=== PATIENT | male | born 1985 | race African-American/Black ===

== ENCOUNTER 2019-07-25 14:00 | Emergency (ER) | payer SELFPAY ==
[~2019-07-25] VITALS: Ht 175.3 cm; Wt 80.0 kg
[2019-07-25] MEDS ORDERED: SODIUM CHLORIDE 0.9% 1,000 ML IV ONE (15:19)
[2019-07-25 15:53] LABS: BASOPHILS % 1.1 % (0.0-2.0); EOSINOPHILS % 1.8 % (0.0-5.0); HEMATOCRIT. 41.3 % (42.0-52.0); HEMOGLOBIN. 13.7 g/dL (14.0-18.0); LYMPHOCYTES % 35.5 % (20.0-50.0); MEAN CORPUSCULAR HEMOGLOBIN 27.1 pg (28.0-32.0); MEAN CORPUSCULAR VOLUME 81.9 fL (80.0-94.0); MEAN PLATELET VOLUME 8.9 fl (7.4-10.4); MONOCYTES % 8.9 % (2.0-8.0); NEUTROPHILS % 52.7 % (40.0-76.0); PLATELET 279 x1000/uL (130-400); RED BLOOD CELL COUNT 5.05 mill/uL (4.7-6.1); RED CELL DISTRIBUTION WIDTH 13.7 % (11.6-14.6)
[2019-07-25 15:58] LABS: CHLORIDE 109 mEq/L (98-107)
[2019-07-25 16:03] LABS: D-DIMER 0.44 mg/L FEU (<0.50); PARTIAL THROMBOPLASTIN TIME 27.2 sec (23.4-31.0); PROTHROMBIN TIME 11.3 sec (9.6-11.0)
[2019-07-25 19:55] VITALS: BP 119/66
== END 2019-07-25 20:26 | disposition home or self-care (01) ==
LOC: ER 14:00
DX: R07.89 Other chest pain (principal); R55 Syncope and collapse
CPT/HCPCS: 36415; 71045; 80053; 82962; 84484; 85025; 85379; 85610; 85730; 93005; 99285; J7030